=== PATIENT | female | born 1985 | race Caucasian/White ===

== ENCOUNTER 2018-01-08 13:38 | Inpatient (IN) | payer OTHER ==
[~2018-01-08] VITALS: Ht 165.1 cm; Wt 115.7 kg
[2018-01-08 14:03] VITALS: BP 130/81
[2018-01-08 15:00] LABS: ABSOLUTE BASOPHIL COUNT 0 /CUMM (0.0-0.2); ABSOLUTE EOSINOPHIL COUNT 0.1 /CUMM (0.0-0.7); ABSOLUTE GRANULOCYTE CT 7.3 /CUMM (1.4-6.5); ABSOLUTE LYMPH COUNT 1.7 /CUMM (1.2-3.4); ABSOLUTE MONOCYTE COUNT 0.4 /CUMM (0.10-0.60); BASOPHIL % 0.4 % (0.0-2.0); EOSINOPHIL % 0.5 % (0-5); GRANULOCYTE % 76.9 % (42.2-75.2); HEMATOCRIT 34.3 % (37-47); MEAN CORPUSCULAR HGB 30.2 PG (27.0-31.0); MEAN CORPUSCULAR HGB CONC 34.9 G/DL (33.0-37.0); MEAN CORPUSCULAR VOLUME 86.5 FL (81.0-99.0); PLATELET COUNT 181 /CUMM (130-400); RBC DISTRIBUTION WIDTH 13.5 % (11.5-14.5); RED BLOOD CELL CT 3.96 /CUMM (4.20-5.40); WHITE BLOOD CELL COUNT 9.4 /CUMM (4.8-10.8)
--- NOTE | 2018-01-08 15:19 | History & Physical ---
General Information and HPI MD Statement: I have seen and personally examined SHARON BUTLER and documented this H&P. Source of Information: patient, old records Exam Limitations: no limitations History of Present Illness: The patient is a 32 year old female at 1 weeks and 0 days gestation who presented with a chief complaint of IOL for pedc. AP care c/b increased BMI 42.8 , possible right kidney --> requires peds f/u after delivery, Rh neg s/p Rhogam 28wks, RNI, GBS pos, abn GCT, nl GTT. 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[employer]/Reproductive: abn pap, s/p cryoablation Surgical History Pertinent Surgical History: rt breast augmentation due to asymmetry, b/l myringotomy Past Family/Social History Psychosocial History Smoking Status: Never Smoked Exam & Diagnostic Data Last 24 Hrs of Vital Signs/I&O Vital Signs Date Time Temp Pulse Resp B/P B/P Pulse O2 O2 Flow FiO2 Mean Ox Delivery Rate 01/08 1403 130/81 Intake & Output 01/08 1600 01/08 0800 0808 0000 Intake Total Output Total Balance Patient 255 lb Weight Obstetric Exam Wgt Gained During : 15# Pelvimetry: adequate Dilation (cm): 1 Effacement (%): 50 Station: -3 Membranes: intact Fluid: unknown Fundal Height (cm): 41 Multiple Gestation? No Contractions: rare Infant #1 - FHR Baseline: 130 Category: 1 Estimated Weight: 4000gr Presentation: vtx Patient for Induction? Yes Keita Score Keita Score Response Value Cervix Position: posterior 0 Cervix Consistency: medium 1 Cervix Effacement: 30-50% 1 Cervix Dilation: 1-2 cm 1 Cervix Station: -3 0 Total 3 Physical Exam: nad abd soft nt gravid ext nt +1 b/l le ed Labs Blood Type & Rh: o neg Antibody Screen: neg Hct/Hgb & Platelets #1: 12.3/37.7, 216 Hct/Hgb & Platelets #2: 10.8/34.9, 176 Rubella: NI VDRL #1: neg VDRL #2: neg HbsAg: neg HIV #1: neg HIV #2 neg 1 Hr P 3 Hr P/ 160/ 131/ 108 Group B Strep: POS Initial Ultrasound: 05/30/17 siup 9+2 Anatomy Ultrasound: 08/19/17 20+6, possible rt pelvic kidney Ultrasound for EFW: 12/16/17 37+6 56% 3283gr Genetic Testing: nl NT, nl cffdna, declines msafp hgb aa cf neg Last 24 Hrs of Labs/Frantz: Laboratory Tests 01/08/18 1359: Urine Color STRAW, Urine Clarity CLEAR, Urine pH 6.0, Ur Specific Hope 1.010, Urine Protein NEG, Urine Ketones NEG, Urine Nitrite NEG, Urine Bilirubin NEG, Urine Urobilinogen 0.2, Ur Leukocyte Esterase NEG, Ur Microscopic EXAM NOT REQUIRED, Urine Hemoglobin NEG, Urine Glucose NEG 01/08/18 1357: Hemoglobin A1c Pending, CBC w Diff NO MAN DIFF REQ, RBC 3.96 L, MCV 86.5, MCH 30.2, MCHC 34.9, RDW 13.5, MPV 10.0, Gran % 76.9 H, Lymphocytes % 17.8 L, Monocytes % 4.4, Eosinophils % 0.5, Basophils % 0.4, Absolute Granulocytes 7.3 H, Absolute Lymphocytes 1.7, Absolute Monocytes 0.4, Absolute Eosinophils 0.1, Absolute Basophils 0 Assessment/Plan Assessment/Plan: 32yo @ 41+1 wks IOL for pedc GBS pos RNI possible right pelvic kidney Rh neg, s/p rhogam and maternal status reassuring -admit -miso -monitoring -pcn -ansvd As Ranked By This Provider Problem List: 1. Core Measures Venous Thromboembolism VTE Risk Factors / No Mechanical VTE Prophylaxis d/t LowRisk-No Interven Req'd No VTE Pharm Prophylaxis d/t LowRisk-No Interven Req'd
--- NOTE | 2018-01-09 07:10 | PN- OBGYN ---
Surgical Brief Attending Note Brief Attending Note: late entry pt comfortable overnight. received miso #2 at 2a. exam unchanged at /-3. afeb, v/ss fht 140s moderate variability +acc no dec toco q 2 -3 sve def P0 41+wks pedc IOL, s/p miso x 2 -cont current mgmt -start PCN
--- NOTE | 2018-01-09 13:56 | PN- OBGYN ---
Surgical Brief Attending Note Brief Attending Note: Late entry for 12: 30PM 32yo, 41 1/7wks, she was admitted for induction of labor due to postdates on January 08, 2018. She received 2 doses of Cytotec yesterday, pt c/o mild cramping pain. denies VB or LOF, reports GFM. on TOCO: ctxs irregular, FHR cat I , cervix 1/50%/-3, posterior. she reveived PCN for GBS prophylaxis. Exam findings discussed with the patient, she understand. Continue cervical ripening with Cytotec versus don balloon catheter discussed with the patient, risks and benefits and alternatives reviewed with patient in detail,, insertion of Don balloon attempted, but unsuccessful. Will continue cervical ripening with misoprostol, 25 mcg of misoprostol placed in sterile fashion at 12:30 PM. Will monitor closely.
--- NOTE | 2018-01-09 18:13 | PN- OBGYN ---
Surgical Brief Attending Note Brief Attending Note: pt c/o mild cramping pain, reports GFM on TOCO; cxts q 4-5 min, FHR shahzad I cervix 1cm/50%/-3, posterior ( unchanged from before) cervical ripening with cervidil overnight d/w pt, R/B/A of cervidil d/w pt,she understand and agreed. cervidil 10mg placed at 6 pm , will monitor closely
--- NOTE | 2018-01-10 10:43 | PN- OBGYN ---
Surgical Brief Attending Note Brief Attending Note: Patient is sitting comfortably in the easy chair in the labor room. No c/o pain. No LOF or VB. Baby is active. +FMs. NST - FHR 140, category 1, no decels, no uterine activity. VTX remains unengaged, EFW 4000g. Keita score 1. 41w3d gestation, her cervix is not induceable. Due to her morbid obesity it is difficult to clearly determine if the baby is very large, if the vertex is malpositioned, or if the pelvis is contracted. She has failed an adequate trial of cervical ripening. I explained to the patient and her family that the unengaged vertex at term in a first is not normal. I advised delivery by primary C/S. The risks, benefits, prupose, and alternatives were d/w the patient, questions answered, and informed consent obtained. She understands that future babies may need to be delivered by repeat C/S.
--- NOTE | 2018-01-11 01:14 | Operative Report ---
Operative/Inv Procedure Report Surgery Date: 01/10/18 Name of Procedure: Primary C/S Pre-Operative Diagnosis: failed postdates IOL Post-Operative Diagnosis: same Estimated Blood Loss: 600cc Surgeon/Wealth Management Consultant: Rica Cartwright MD Anesthesia: block Monitors: preop FHR, maternal EKG, BP, RR, O2 sat, temp IV Fluids: LR Urine Output: 400cc, clear Drains: Hall Specimens: cord bloods Microbiology: urine C&S Complications: none Condition: very good Operative Indication: failed postdates IOL Operative/Procedure Note Note: The patient was brought to the OR, placed on the OR table in the sitting position, spinal anesthesia was administered, then she was placed in the dorsal supine position with a left lateral tilt. A Hall catheter was inserted aseptically and the abdomen was prepped with Chloroprep. After drying drapes were placed creating the sterile field, the patient was tested and the block was found to be adequate, and a time-out was performed. The skin was incised with a scalpel in a Pfannenstiel fashion, the incision was carried down through the subcutaneous tissue with cautery, with close attention to hemostasis. The fascia was nicked on each side of the linea alba and opened with Small scissorson each side in a curvilinear fashion. The superior and inferior raphes were incised with Small scissors, the rectus muscles were buntly in the midline, the peritoneum was grasped and entered bluntly, and the peritoneal opening was bluntly stretched. The uterus was palpated for rotation. The lower [place] blade was placed suprapubically and the Horner retractor was placed superiorly in the incision, and a bladder flap was created with Metzenbaum scissors, and then loosened bluntly off the lower uterine segment. The [place] was repositioned, and then the lower uterine segment was incised transverely with Metzenbaum scissors. The uterine incision was extended bluntly, and clear amniotic fluid was noted. The retractors were removed and the vertex was delivered manually with gentle fundal pressure, the baby delivered easily, mouth and nose were suctioned, the face was wiped clean with a clean lap pad, active limb movements and spontaneous cry were noted, the cord was doubly clamped and cut, and the infant was handed off to the Pediatric team in attendance. The placenta was delivered spontaneously and completely from the uterine cavity, the uterus was exteriorized, wrapped reena moist lap pad, the cavity was wiped clean of membranes with a dry lap pad, and the incision angles were grasped with T clamps. The uterine incision was then closed in 2 layers with #1.0 chromic; the first layer was a running locking stitch, and the second layer was an imbricating stitch. There was good hemostasis of the uterine closure. The bladder flap was then reapproximated with a running stitch of 2.0 Vicryl. The cul-de-sac was irrigated and cleaned of clots, the adnexa were inspected and found to be normal. The uterus was then returned to the abdominal cavity. The gutters were cleaned of clots with clean moist lap pads, and the uterine incision was reinspected for hemostasis. All lap pads and instruments were removed from the abdominal cavity, and a surgical sweep was negative. The parietal peritoneum was grasped with Mary clamps and closed in a running fashion with 2.0 Vicryl. The rectus muscles were reapproximated in the midline with interrupted figure-of-8 sutures of 2.0 Vicryl. Hemostasis was evaluated and found to be good. The rectus fascia was closed with #1 Vicryl from each incision corner to the midline. The subcutaneous tissue was irrigated, checked for hemostasis with cautery, and closed with interrupted sutures of 2.0 plain gut. The skin was closed with 4.0 Monocryl on a Jeremi needle in a subcuticular fashion. The wound was cleaned and dried, steri-strips and a sterile dressing, and then a pressure dressing were applied. The patient was cleaned and changed and transferred to recovery in very good condition. The needle, instrument, lap pad, and sponge counts were correct twice by the end of the procedure. Findings: Single viable female , 9,9, from the LOT position, unengaged, clear amniotic fluid, trivascular cord, normal placenta, normal uterus, tubes, and ovaries. No pelvic mass, ascites, or pelvic lymphadenopathy was noted. Discharge Disposition: CBC Additional Comments: Pelvic inlet seems contracted.
[2018-01-11 09:17] LABS: ABSOLUTE BASOPHIL COUNT 0 /CUMM (0.0-0.2); ABSOLUTE EOSINOPHIL COUNT 0.1 /CUMM (0.0-0.7); ABSOLUTE GRANULOCYTE CT 4.2 /CUMM (1.4-6.5); ABSOLUTE LYMPH COUNT 1.7 /CUMM (1.2-3.4); ABSOLUTE MONOCYTE COUNT 0.3 /CUMM (0.10-0.60); BASOPHIL % 0.4 % (0.0-2.0); EOSINOPHIL % 1.2 % (0-5); MEAN CORPUSCULAR HGB 29.3 PG (27.0-31.0); MEAN CORPUSCULAR HGB CONC 33.4 G/DL (33.0-37.0); MEAN CORPUSCULAR VOLUME 87.9 FL (81.0-99.0); MEAN PLATELET VOLUME 9.6 FL (7.4-10.4); PLATELET COUNT 125 /CUMM (130-400); RBC DISTRIBUTION WIDTH 13.3 % (11.5-14.5); RED BLOOD CELL CT 3.28 /CUMM (4.20-5.40); WHITE BLOOD CELL COUNT 6.2 /CUMM (4.8-10.8)
[2018-01-11 09:31] LABS: HEMATOCRIT 28.8 % (37-47)
--- NOTE | 2018-01-11 11:00 | PN- OBGYN ---
Surgical Brief Attending Note Brief Attending Note: POD 1 Good pain control on PO meds this morning. Ambulating, showered. Denies dizziness, SOB, CP Tolerating all POs. +flatus. +void without difficulty. afebrile, VS normal Lips - pink, moist Neck - supple Abd - soft, NT Fundus - firm, NT, below U no CVAT Extr - benign A: stable s/p primary C/S P: routine postop care postop anemia, acute, asymptomatic, plan restart daily PNV after 1st BM wound care under pannus discussed
[2018-01-12 09:21] LABS: ABSOLUTE BASOPHIL COUNT 0 /CUMM (0.0-0.2); ABSOLUTE EOSINOPHIL COUNT 0.1 /CUMM (0.0-0.7); ABSOLUTE GRANULOCYTE CT 4.9 /CUMM (1.4-6.5); ABSOLUTE LYMPH COUNT 1.7 /CUMM (1.2-3.4); ABSOLUTE MONOCYTE COUNT 0.4 /CUMM (0.10-0.60); BASOPHIL % 0.5 % (0.0-2.0); EOSINOPHIL % 1.3 % (0-5); GRANULOCYTE % 69.4 % (42.2-75.2); HEMATOCRIT 30.7 % (37-47); MEAN CORPUSCULAR HGB 29.7 PG (27.0-31.0); MEAN CORPUSCULAR HGB CONC 33.8 G/DL (33.0-37.0); MEAN CORPUSCULAR VOLUME 87.8 FL (81.0-99.0); MEAN PLATELET VOLUME 9.1 FL (7.4-10.4); PLATELET COUNT 154 /CUMM (130-400); RBC DISTRIBUTION WIDTH 13.6 % (11.5-14.5)
--- NOTE | 2018-01-12 15:15 | PN- OBGYN ---
Surgical Brief Attending Note Brief Attending Note: POD 2 Much more comfortable today. +flatus, no BM yet. Not , no engorgement yet either. Answered many questions about home incision care. afebrile, VS normal Lips - pink, moist Neck - supple Abd - soft, NT, nondistended Fundus - firm, NT, small Extr - benign A: stable s/p primary C/S for failed postdates IOL P: plan for discharge in am
--- NOTE | 2018-01-13 09:51 | PN- Post Delivery/GYN ---
Subjective Subjective: feeling well ready to go home Review of Systems Constitutional: Denies: chills, fever. EENTM: Denies: blurred vision, double vision, visual changes. Cardiovascular: Reports: edema. Denies: chest pain. Respiratory: Denies: cough. Gastrointestinal: Denies: constipation, diarrhea, nausea, vomiting. Genitourinary: Denies: dysuria. Neurological/Psychological: Denies: depressed. Objective Last 24 Hrs of Vital Signs/I&O vss Physical Exam General Appearance Alert, Oriented X3, Cooperative, No Acute Distress Cardiovascular Regular Rate Lungs Clear to Auscultation Abdomen Soft, incision clean and dry Neurological Normal Gait, Normal Speech Extremities No Clubbing (pedal edema) Pelvic (FEMALE) lochia serosanganous Current Medications: Current Medications Sig/Nixon Start time Last Medication Dose Route Stop Time Status Admin Acetaminophen 650 MG Q4P PRN 01/11 1145 AC PO Docusate Sodium 100 MG DAILY NEEDED PRN 01/12 0500 AC 01/12 PO 1552 Hydroxyzine HCl 100 MG AT BEDTIME NEED.. 01/09 0330 AC 01/12 PO 0023 Ibuprofen 800 MG Q6P PRN 01/11 1145 AC 01/13 PO 0254 Measles/Mumps/ 1 SHAHID ONE ONE 01/13 0800 CAN Rubella Vaccine Live SC 01/13 0801 Misoprostol 25 MCG Q4P PRN 01/08 1345 AC 01/09 VAG 1232 Oxycodone/ 2 TAB Q6P PRN 01/11 1145 AC 01/11 Acetaminophen PO 1152 Oxycodone/ 1 TAB Q4P PRN 01/11 1145 AC 01/13 Acetaminophen PO 0258 Assessment/Plan Assessment/Plan vss afebrile plan d/c home Problem List: 1. Attending MD Review Statement Attending Statement Attending MD Statement: examined this patient, discussed with family, discussed with nursing
[2018-01-13] MEDS ORDERED: IBUPROFEN800 M1 PO (09:53)
[2018-01-13] MEDS ORDERED: PERCOCET 5-3251 EACH PO (09:53)
== END 2018-01-13 11:20 | DRG 766 ==
LOC: GNO 13:38
PROVIDERS: Obstetrics & Gynecology
PROC: 3E0P7VZ Introduction of Hormone into Female Reproductive, Via Natural or Artificial Opening (ICD-10-PCS; principal; 2018-01-10)
PROC: 10D00Z1 Extraction of Products of Conception, Low, Open Approach (ICD-10-PCS; principal; 2018-01-10)
DX: O48.0 Post-term pregnancy (principal); Z3A.41 41 weeks gestation of pregnancy; Z37.0 Single live birth; O99.824 Streptococcus B carrier state complicating childbirth; O61.0 Failed medical induction of labor; O26.893 Other specified pregnancy related conditions, third trimester; Z67.41 Type O blood, Rh negative
CPT/HCPCS: GNOP; GNOS; 36415; 81003; 87086; J1200; J1885; J2790; J7120